=== PATIENT | male | born 1990 | race African-American/Black ===

== ENCOUNTER 2022-10-20 16:12 | Inpatient (IN) | payer MEDICAID ==
[~2022-10-20] VITALS: Ht 165.1 cm; Wt 60.8 kg
[2022-10-20] MEDS ORDERED: MAGNESIUM/ALUMINUM HYDROXIDE/SIMETHICONE 30ML UDC PO STA (17:02)
[2022-10-20] MEDS ORDERED: ONDANSETRON 4MG ODT PO STA (17:02)
[2022-10-20] MEDS ORDERED: VISCOUS LIDOCAINE 2% 15 ML UDC PO STA (17:02)
[2022-10-20 20:52] LABS: BASOPHILS % 0.2 % (0.0-2.0); EOSINOPHILS % 0.1 % (0.0-5.0); HEMATOCRIT. 43.3 % (42.0-52.0); HEMOGLOBIN. 14.5 g/dL (14.0-18.0); LYMPHOCYTES % 11.4 % (20.0-50.0); MEAN CORPUSCULAR HEMOGLOBIN 29.7 pg (28.0-32.0); MEAN CORPUSCULAR VOLUME 88.4 fL (80.0-94.0); MONOCYTES % 7.5 % (2.0-8.0); NEUTROPHILS % 80.8 % (40.0-76.0); PLATELET 238 x1000/uL (130-400); RED CELL DISTRIBUTION WIDTH 15.4 % (11.6-14.6)
[2022-10-20 20:58] LABS: CHLORIDE 92 mEq/L (98-107)
[2022-10-20] MEDS ORDERED: MORPHINE SULFATE 4 MG/ML CPJ (NOT FOR IM USE) IV ONE (21:15)
[2022-10-20] MEDS ORDERED: MORPHINE SULFATE 4 MG/ML CPJ (NOT FOR IM USE) IV NR (21:15)
[2022-10-20] MEDS ORDERED: ONDANSETRON HCL 4MG/2ML INJ IV ONE (21:15)
[2022-10-20] MEDS ORDERED: ONDANSETRON HCL 4MG/2ML INJ IV NR (21:15)
[2022-10-20] MEDS: LACTATED RINGERS 1,000 ML IV SCH (21:45)
[2022-10-21] MEDS: LACTATED RINGERS 1,000 ML IV SCH (01:30)
[2022-10-21] MEDS ORDERED: DOCUSATE SODIUM 100MG CAPSULE PO PRN (03:30)
[2022-10-21] MEDS ORDERED: ACETAMINOPHEN 325MG TABLET PO PRN (03:30)
[2022-10-21] MEDS ORDERED: CLONIDINE 0.1MG TABLET PO PRN (03:30)
[2022-10-21] MEDS ORDERED: ONDANSETRON HCL 4MG/2ML INJ IV PRN (03:30)
[2022-10-21] MEDS ORDERED: MAGNESIUM/ALUMINUM HYDROXIDE/SIMETHICONE 30ML UDC PO PRN (03:30)
[2022-10-21] MEDS ORDERED: GUAIFENESIN 200MG/10ML SUGAR FREE UDC PO PRN (03:30)
[2022-10-21] MEDS ORDERED: MVI, ADULT NO.1 10 ML, FOLIC ACID 1 MG, THIAMINE HCL 100 MG in SODIUM CHLORIDE 0.9% 1,0... IV NR ×4 (03:30)
[2022-10-21] MEDS ORDERED: NA PHOS,M-B/NA PHOS,DI-BA ENEMA 118ML PR PRN (03:30)
[2022-10-21] MEDS ORDERED: IPRATROPIUM/ALBUTEROL 0.5-3(2.5)MG/3ML NEB HHN PRN (03:30)
[2022-10-21] MEDS ORDERED: SODIUM CHLORIDE 0.9% 1,000 ML IV SCH (03:45)
[2022-10-21] MEDS ORDERED: MORPHINE SULFATE 2 MG/ML CPJ (NOT FOR IM USE) IV PRN (03:45)
[2022-10-21] MEDS ORDERED: NALOXONE HCL 0.4MG/ML VIAL IV PRN (04:00)
[2022-10-21 04:37] LABS: INR 1.1; PROTHROMBIN TIME 11.9 sec (9.6-11.0)
[2022-10-21] MEDS: DEXT 5%/0.9% NACL 1,000 ML IV SCH ×2 (05:01→21:25)
[2022-10-21 05:04] LABS: PHOSPHORUS 3.2 mg/dL (2.5-4.9)
[2022-10-21] MEDS: THIAMINE HCL 100MG TABLET PO SCH ×2 (05:19→09:00)
[2022-10-21] MEDS: PANTOPRAZOLE SODIUM 40 MG/VIAL IV SCH ×2 (09:37→17:45)
[2022-10-21] MEDS: ENOXAPARIN 40MG/0.4ML SYR SUBCUT SCH (09:42)
[2022-10-21] MEDS ORDERED: MAGNESIUM 1 G PREMIX 100 ML IV NR (13:00)
[2022-10-21] MEDS: KETOROLAC 15MG/ML VIAL IV PRN (17:50)
[2022-10-21 20:06] LABS: CLARITY URINE CLEAR (CLEAR); COLOR URINE YELLOW (YELLOW); KETONES URINE 1+ (NEGATIVE); LEUKOCYTE ESTERASE URINE NEGATIVE (NEGATIVE); NITRITE URINE NEGATIVE (NEGATIVE); OCCULT BLOOD URINE NEGATIVE (NEGATIVE); PROTEIN URINE NEGATIVE (NEGATIVE); SPECIFIC GRAVITY URINE 1.004 (1.005-1.030); UROBILINOGEN URINE 0.2 E.U./dL (0.2-1.0)
[2022-10-21 20:25] LABS: SODIUM URINE RANDOM 12 mEq/L
[2022-10-21 21:10] VITALS: BP 140/93
[2022-10-21 22:00] VITALS: BP 140/93
[2022-10-22] MEDS: KETOROLAC 15MG/ML VIAL IV PRN ×3 (01:26→22:30)
[2022-10-22 04:00] VITALS: BP 151/80
[2022-10-22] MEDS: DEXT 5%/0.9% NACL 1,000 ML IV SCH ×3 (04:08→22:30)
[2022-10-22 07:30] LABS: BASOPHILS % 0.4 % (0.0-2.0); EOSINOPHILS % 2.9 % (0.0-5.0); HEMATOCRIT. 31.9 % (42.0-52.0); HEMOGLOBIN. 10.8 g/dL (14.0-18.0); LYMPHOCYTES % 23.6 % (20.0-50.0); MEAN CORPUSCULAR HEMOGLOBIN 29.7 pg (28.0-32.0); MEAN CORPUSCULAR VOLUME 87.9 fL (80.0-94.0); MONOCYTES % 7.7 % (2.0-8.0); NEUTROPHILS % 65.4 % (40.0-76.0); PLATELET 182 x1000/uL (130-400); RED BLOOD CELL COUNT 3.63 mill/uL (4.7-6.1)
[2022-10-22 08:04] LABS: CHLORIDE 105 mEq/L (98-107)
[2022-10-22 08:36] LABS: HDL CHOLESTEROL 46 mg/dL (40-59); LDL CHOLESTEROL 103 mg/dL (5-100); T4 FREE 0.96 ng/dL (0.76-1.46)
[2022-10-22] MEDS: ENOXAPARIN 40MG/0.4ML SYR SUBCUT SCH (09:00)
[2022-10-22] MEDS: PANTOPRAZOLE SODIUM 40 MG/VIAL IV SCH ×2 (09:00→17:16)
[2022-10-22] MEDS: THIAMINE HCL 100MG TABLET PO SCH (09:00)
[2022-10-22 14:23] LABS: *AMPHETAMINES SCREEN URINE NEGATIVE (NEGATIVE); *BARBITURATES SCREEN URINE NEGATIVE (NEGATIVE); *BENZODIAZEPINES SCREEN URINE NEGATIVE (NEGATIVE); *COCAINE SCREEN URINE NEGATIVE (NEGATIVE); CANNABINOID URINE SCREEN NEGATIVE (NEGATIVE); METHADONE URINE SCREEN NEGATIVE (NEGATIVE); OPIATES URINE SCREEN PRESUMTIVE POSITIVE (NEGATIVE); PHENCYCLIDINE URINE SCREEN NEGATIVE (NEGATIVE)
[2022-10-22 20:00] VITALS: BP 129/79
[2022-10-23] VITALS: BP 143/96
[2022-10-23 04:00] VITALS: BP 142/94
[2022-10-23] MEDS: KETOROLAC 15MG/ML VIAL IV PRN ×2 (04:37→10:10)
[2022-10-23] MEDS: DEXT 5%/0.9% NACL 1,000 ML IV SCH (04:45)
[2022-10-23 08:47] LABS: BASOPHILS % 0.4 % (0.0-2.0); EOSINOPHILS % 3.2 % (0.0-5.0); HEMATOCRIT. 31.5 % (42.0-52.0); HEMOGLOBIN. 10.4 g/dL (14.0-18.0); LYMPHOCYTES % 33.5 % (20.0-50.0); MEAN CORPUSCULAR HEMOGLOBIN 29.6 pg (28.0-32.0); MEAN CORPUSCULAR VOLUME 89.4 fL (80.0-94.0); MEAN PLATELET VOLUME 6.8 fl (7.4-10.4); MONOCYTES % 8.2 % (2.0-8.0); NEUTROPHILS % 54.7 % (40.0-76.0); PLATELET 184 x1000/uL (130-400); RED BLOOD CELL COUNT 3.53 mill/uL (4.7-6.1); RED CELL DISTRIBUTION WIDTH 14.7 % (11.6-14.6)
[2022-10-23 09:15] LABS: CHLORIDE 108 mEq/L (98-107)
[2022-10-23] MEDS: THIAMINE HCL 100MG TABLET PO SCH (09:46)
[2022-10-23] MEDS: PANTOPRAZOLE SODIUM 40 MG/VIAL IV SCH (09:46)
[2022-10-23] MEDS: ENOXAPARIN 40MG/0.4ML SYR SUBCUT SCH (09:47)
[2022-10-23 12:47] VITALS: BP 132/84
== END 2022-10-23 15:20 | disposition home or self-care (01) | DRG 282 ==
LOC: ER 16:12 → MICUSO 10-21 01:29 → 6EST 10-21 21:42
PROVIDERS: ADMIT Hospitalist; ATTEND Hospitalist
DX: K85.90 Acute pancreatitis without necrosis or infection, unspecified (principal); E87.8 Other disorders of electrolyte and fluid balance, not elsewhere classified; E87.1 Hypo-osmolality and hyponatremia; F17.200 Nicotine dependence, unspecified, uncomplicated; F19.10 Other psychoactive substance abuse, uncomplicated; F10.20 Alcohol dependence, uncomplicated; E78.1 Pure hyperglyceridemia; E16.2 Hypoglycemia, unspecified; R74.01 Elevation of levels of liver transaminase levels; S86.019A Strain of unspecified Achilles tendon, initial encounter; X58.XXXA Exposure to other specified factors, initial encounter; Y93.89 Activity, other specified; Y92.89 Other specified places as the place of occurrence of the external cause; Y99.8 Other external cause status
CPT/HCPCS: 36415; 71045; 74176; 76705; 80053; 80061; 80305; 81003; 82977; 83036; 83605; 83735; 83930; 83935; 84100; 84300; 84439; 84443; 84478; 84481; 84484; 85025; 93005; 99285; C9113; J1650; J1885; J2270; J2405; J3411; J3475; J3490; J7030; J7042; J7120